=== PATIENT | female | born 1935 | race Caucasian/White ===

== ENCOUNTER → 2019-03-27 | Outpatient (CLI) | payer MEDICARE ==
[~2019-03-27] MED LIST: ASPI325 PO; ASPI81CH PO; Azor 5-20 MG T1 EACH; CALCIT950 PO; Diovan Hct 1601 EACH PO; Diovan320 MG PO; Hair, Skin & N1 EACH PO; Humalog100 UNIT/1 SC; INSULANPEN SC; PANT20 PO; PANT40 PO; PRAV20 PO; TICA90TA PO
[2019-03-27 11:42] LABS: Source, Urine Clean Catch
[2019-03-27 12:20] LABS: Appearance, Urine Turbid (Clear); Color, Urine Yellow (P-Yellow); Leukocyte Esterase, Urine 2+ (Neg); Nitrite, Urine Neg (Neg); Specific Gravity, Urine 1.015 (1.003-1.022)
[2019-03-27 12:21] LABS: Bacteria Many /hpf; Bilirubin, Urine Neg (Neg); Blood, Urine 1+ (Neg); Glucose Qualitative, Urine Neg (Normal); Ketones, Urine Neg (Neg); Protein, Urine 1+ (Neg); Squamous Epithelial Cells Mod /hpf (Few); Urobilinogen, Urine NORM (Normal); White Blood Cells, Urine TNTC /hpf (0-5)
== END | disposition home or self-care (01) ==
LOC: LAB EV 10:40
PROVIDERS: Physician Assistant
DX: R35.0 Frequency of micturition (principal)
CPT/HCPCS: 81001; 87077; 87086; 87186